=== PATIENT | female | born 1985 | race Caucasian/White ===

== ENCOUNTER 2020-11-30 21:51 | Emergency (ER) | payer MEDICAID ==
[2020-11-30] MEDS ORDERED: PROCHLORPERAZINE 10 MG/2 ML VIAL IVP STA (22:28)
[2020-11-30] MEDS ORDERED: diphenhydrAMINE INJ 50 MG/ML VIAL IVP STA (22:28)
[2020-11-30] MEDS ORDERED: SODIUM CHLORIDE 0.9% 1,000 ML IV STA (22:32)
[2020-11-30 22:57] LABS: HCG UR QUAL NEGATIVE
[2020-12-01] MEDS ORDERED: HALOPERIDOL 5 MG/ML VIAL IVP ONE (00:21)
--- NOTE | 2020-12-01 00:24 | ED Physician Documentation ---
History of Present Illness - Stated complaint Stated Complaint: HEADACHE - Chief complaint Chief Complaint: Neuro - Additonal information Additional information: The patient presents with complaints of a headache. This started 3 days ago. When asked where the pain is located she points toward her forehead. She says that it is similar to prior migraine headaches. However, it has lasted longer. She has tried treating it at home with Motrin and Tylenol but it persists. She has had some associated blurry vision and photophobia. She has been nauseated and has vomited several times bringing up an emesis that is nonbloody and without coffee-ground appearance. She has had some mild ringing in her ears. She has had no recent head injuries. She denies focal numbness, weakness or tingling. She has had no fevers, chills or sweats. Her last menstrual period was 2 weeks ago but she says that her migraine headaches are not typically associated with her cycle. Review of Systems Constitutional: denies: Fever, Chills, Myalgias Eyes: reports: Photophobia. denies: Loss of vision Ears: reports: Tinnitus/ringing. denies: Loss of hearing Nose: denies: Congestion, Sinus pressure / pain Throat: denies: Dental pain / toothache Cardiac: denies: Chest pain / pressure, Palpitations, Pedal edema Respiratory: denies: Dyspnea GI: reports: Nausea, Vomiting. denies: Abdominal Pain, Constipation, Diarrhea : denies: Dysuria Musculoskeletal: denies: Neck pain, Back pain, Extremity pain Neurologic: reports: Headache. denies: Head injury, LOC PD PAST MEDICAL HISTORY - Past Medical History Past Medical History: Yes Neuro: Migraines - Past Surgical History Past Surgical History: No - Allergies Allergies/Adverse Reactions: Allergies Allergy/AdvReac Type Severity Reaction Status Date / Time Sulfa (Sulfonamide Allergy Anaphylaxis Verified 11/30/20 21:55 Antibiotics) - Social History Does the pt smoke?: Yes Smoking Status: Current every day smoker Does the pt drink ETOH?: No Does the pt have substance abuse?: No - Immunizations Immunizations are current?: Yes PD ED PE NORMAL - Vitals Vital signs reviewed: Yes - General General: Alert and oriented X 3, Other (in pain) - HEENT HEENT: Atraumatic - Neck Neck: Supple, no meningeal sign, Thyroid normal - Cardiac Cardiac: RRR, No murmur, No gallop, No rub - Respiratory Respiratory: No respiratory distress, Clear bilaterally - Abdomen Abdomen: Normal bowel sounds, Soft, Non tender, Non distended - Derm Derm: Normal color - Extremities Extremities: Normal ROM s pain, No edema - Neuro Neuro: Alert and oriented X 3, 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, No motor deficit, No sensory deficit Results - Vitals Vitals: Vital Signs - 24 hr 11/30/20 11/30/20 12/01/20 21:56 22:10 00:34 Temperature 36.7 C 36.7 C Heart Rate 89 89 81 Respiratory 19 19 16 Rate Blood Pressure 119/72 119/72 115/72 O2 Saturation 100 100 100 Oxygen O2 Source Room air - Labs Labs: Laboratory Tests 11/30/20 22:45 Urine HCG, Qual NEGATIVE Departure - Departure Disposition: 01 Home, Self Care Clinical Impression: Migraine Qualifiers: Migraine type: unspecified Status migrainosus presence: without status migrainosus Intractability: not intractable Qualified Code(s): G43.909 - Migraine, unspecified, not intractable, without status migrainosus Condition: Stable Instructions: ED Headache Migraine Discharge Date/Time: 12/01/20 00:51
[2020-12-01 00:37] VITALS: BP 115/72
== END 2020-12-01 00:51 | disposition home or self-care (01) ==
LOC: EDBD 21:51 → ED 21:51 → EEVIPCON 21:51 → ED 12-01 00:51
DX: G43.909 Migraine, unspecified, not intractable, without status migrainosus (principal); F17.200 Nicotine dependence, unspecified, uncomplicated
CPT/HCPCS: 81025; 96361; 96374; 99283; 99284; J1200